=== PATIENT | male | born 1960 | race Caucasian/White ===

== ENCOUNTER 2019-10-04 09:15 | Emergency (ER) | payer BC ==
--- NOTE | 2019-10-04 09:39 | ED ---
HPI Chest Pain - HPI Summary HPI Summary: This patient is a 59 year old male presenting to [facility] with a chief complaint of intermittent chest pain for weeks. He states this morning he felt his chest and back were "splitting". He states he has a Hx of hypertension. Patient does not smoke. Exertion does not aggravate symptoms. He states touching and deep breaths make it feel tight but does not reproduce the splitting sensation. Patient denies SOB, nausea, and vomiting. Denies Hx of DVT. He states he has had costrochondritis before but that the pain was more diffuse. - History of Current Complaint Chief Complaint: EDChestPainROMI Time Seen by Provider: 10/04/19 09:33 Hx Obtained From: Patient Onset/Duration: Started Hours Ago Pain Intensity: 6 Pain Scale Used: 0-10 Numeric Chest Pain Location: Mid Sternal Chest Pain Radiates To:: Back - Allergy/Home Medications Allergies/Adverse Reactions: Allergies Allergy/AdvReac Type Severity Reaction Status Date / Time hydrocortisone Allergy Hives Verified 10/04/19 09:25 naproxen Allergy Hives Verified 10/04/19 09:25 sumatriptan [From Imitrex] Allergy See Comment Verified 10/04/19 09:25 ESCARGOT Allergy Anaphylatic Uncoded 08/18/19 11:09 Shock Home Medications: Home Medications Amlodipine Besylate [Norvasc-] 5 mg PO BID 06/05/16 [History Confirmed 10/04/19] Atenolol TAB* [Tenormin TAB* 50 MG] 50 mg PO BID 06/05/16 [History Confirmed 11/19] diphenhydrAMINE HCl [Benadryl Allergy] 25 mg PO DAILY 07/03/16 [History Confirmed 10/04/19] Aspirin [Aspirin Adult Low Dose] 81 mg PO DAILY 09/04/16 [History Confirmed 11/19] Gabapentin [Neurontin] 300 mg PO TID PRN 05/19/18 [History Confirmed 10/04/19] Butalbital/Aspirin/Caffeine [Butalbital/ASA/Caffeine 50-325-40 mg] 1 cap PO DAILY PRN 01/05/19 [History Confirmed 10/04/19] traZODone TAB* [Desyrel TAB*] 150 mg PO BEDTIME 02/17/19 [History Confirmed 11/19] Glucosam/Chondr/Collagn/Hyalur [Th Glucosamine/Chondroiti] 1 cap PO BID [History Confirmed 10/04/19] Montelukast Sodium TAB* [Singulair TAB*] 10 mg PO DAILY 10/04/19 [History Confirmed 10/04/19] Niacin ER CAP* [Niaspan ER CAP*] 500 mg PO DAILY 10/04/19 [History Confirmed 11/19] PMH/Surg Hx/FS Hx/Imm Hx Endocrine/Hematology History: Denies: Hx Diabetes Cardiovascular History: Reports: Hx Hypertension - ON MEDS Denies: Hx Pacemaker/ICD History: Denies: Hx Renal Disease Musculoskeletal History: Reports: Hx Back Problems - low back, neck, Other Musculoskeletal History - DJD ongoing Sensory History: Reports: Hx Contacts or Glasses Denies: Hx Hearing Aid Opthamlomology History: Reports: Hx Contacts or Glasses Neurological History: Reports: Hx Headaches, Hx Migraine - but pt doesn't like to describe [place] as such... Comment Only: Other Neuro Impairments/Disorders - PAIN CLINIC PT. Psychiatric History: Denies: Hx Panic Disorder - Surgical History Surgery Procedure, Year, and Place: [facility]- REPAIR -2003 Infectious Disease History: No Infectious Disease History: Denies: Traveled Outside the [place] in Last 30 Days - Family History Known Family History: Negative: Seizure Disorder - Social History Alcohol Use: Weekly Alcohol Amount: 1-2 Substance Use Type: Reports: None Smoking Status (MU): Former Smoker Review of Systems Positive: Chest Pain Negative: Shortness Of Breath Negative: Vomiting, Nausea All Other Systems Reviewed And Are Negative: Yes Physical Exam - Summary Physical Exam Summary: Constitutional: Well-developed, Well-nourished, Alert. (-) Distressed Skin: Warm, Dry HENT: Normocephalic; Atraumatic Eyes: Conjunctiva normal Neck: Musculoskeletal ROM normal neck. (-) JVD, (-) Stridor, (-) Tracheal deviation Cardio: Rhythm regular, rate normal, Heart sounds normal; Intact distal pulses; The pedal pulses are 2+ and symmetric. Radial pulses are 2+ and symmetric. (-) Murmur Pulmonary/Chest wall: Effort normal. (-) Respiratory distress, (-) Wheezes, (-) Rales Abd: Soft. (-) Tenderness, (-) Distension, (-) Guarding, (-) Rebound Musculoskeletal: (-) Edema. Chest wall tenderness left sternal border. Lymph: (-) Cervical adenopathy Neuro: Alert, Oriented x3, Strength normal, Cranial nerves II-XII are grossly intact. (-) Dysmetria, (-) Nystagmus, (-) Ataxia by finger to nose testing, (-) Sensory deficit. Psych: Mood and affect Normal Triage Information Reviewed: Yes Vital Signs On Initial Exam: Initial Vitals Temp Pulse Resp BP Pulse Ox 98 F 59 16 162/76 100 10/04/19 09:23 10/04/19 09:23 10/04/19 09:23 10/04/19 09:23 10/04/19 09:23 Vital Signs Reviewed: Yes Procedures - Sedation Patient Received Moderate/Deep Sedation with Procedure: No Diagnostics - Vital Signs Vital Signs Temp Pulse Resp BP Pulse Ox 10/04/19 09:23 98 F 59 16 162/76 100 - Laboratory Result Diagrams: 10/04/19 09:42 10/04/19 09:42 Lab Statement: Any lab studies that have been ordered have been reviewed, and results considered in the medical decision making process. - Radiology CXR Radiology Interpretation Completed By: Radiologist Summary of Radiographic Findings: Elevated lung volumes suggest potential obstructive lung disease. NO acute pulmonary or cardiac process is evident. ED Provider has reviewed this report. - EKG 0916 Cardiac Rate: NL - 63 BPM EKG Rhythm: Sinus Rhythm Summary of EKG Findings: No ischemic changed. ED Physician has reviewed and interpreted this EKG. Chest Pain Course/Dx - Course Course Of Treatment: This patient is a 59 year old male presenting to [facility] with a chief complaint of intermittent chest pain for weeks. He states this morning he felt his chest and back were "splitting". He states he has a Hx of hypertension. Patient does not smoke. Exertion does not aggravate symptoms. He states touching and deep breaths make it feel tight but does not reproduce the splitting sensation. Physical exam reveals left chest wall tenderness. EKG was unremarkable. CXR reveals Elevated lung volumes suggest potential obstructive lung disease. NO acute pulmonary or cardiac process is evident.Plan for discharge was discussed with the patient and he understands and agrees with this plan. - Diagnoses Provider Diagnoses: Chest pain Discharge ED - Sign-Out/Discharge Documenting (check all that apply): Patient Departure - Discharge - Discharge Plan Condition: Stable Disposition: HOME Patient Education Materials: Chest Pain (ED) Referrals: Macario Pollard MD [Primary Care Provider] - 2 Days Additional Instructions: Return to ED with new or worsening symptoms. - Billing Disposition and Condition Condition: STABLE Disposition: Home - Attestation Statements Document Initiated by Scribe: Yes Documenting Scribe: Lefty Hoskins Provider For Whom Scribe is Documenting (Include Credential): Aayush John DO Scribe Attestation: Lefty Nye scribed for Aayush John DO on 10/04/19 at 1445. Scribe Documentation Reviewed: Yes Provider Attestation: The documentation as recorded by the Lefty clement accurately reflects the service I personally performed and the decisions made by Aayush wall DO Status of Scribe Document: Viewed
[2019-10-04 09:50] LABS: ABS Lymphocytes 1.4 10^3/ul (1.0-4.8); ABS Monocytes 0.5 10^3/ul (0-0.8); ABS Neutrophils 3.5 10^3/ul (1.5-7.7); Eosinophil % 0.8 %; Hematocrit 44 % (42-52); Hemoglobin 14.3 g/dL (14.0-18.0); Lymphocyte % 25.1 %; Mean Corpuscular HGB Conc 33 g/dL (31-36); Mean Corpuscular Hemoglobin 28 pg (27-31); Mean Corpuscular Volume 85 fL (80-94); Mean Platelet Volume 7.7 fL (7.4-10.4); Nucleated Red Blood Cells % 0.1; Platelet Count 256 10^3/uL (150-450); Red Blood Count 5.13 10^6 /uL (4.18-5.48); Red Cell Distribution Width 14 % (10-15); White Blood Count 5.5 10^3/uL (3.5-10.8)
[2019-10-04 09:57] LABS: INR 0.91 (0.82-1.09)
[2019-10-04 10:13] LABS: Albumin 4.4 g/dL (3.2-5.2); Albumin/Globulin Ratio 1.8 (1-3); BUN/Creatinine Ratio 28.6 (8-20); Calcium 9.6 mg/dL (8.6-10.3); EGFR African American 94.7 (>60); EGFR Non-African American 78.3 (>60); Globulin 2.5 g/dL (2-4); Total Bilirubin 0.4 mg/dL (0.2-1.0); Total Protein 6.9 g/dL (6.4-8.9)
[2019-10-04 10:14] LABS: Troponin I 0.01 ng/mL (<0.03)
[2019-10-04 13:02] VITALS: BP 128/86
== END 2019-10-04 13:02 | disposition home or self-care (01) ==
LOC: ED 09:15
DX: R07.89 Other chest pain (principal); I10 Essential (primary) hypertension; Z88.6 Allergy status to analgesic agent; Z88.8 Allergy status to other drugs, medicaments and biological substances; Z87.891 Personal history of nicotine dependence
CPT/HCPCS: 36415; 71045; 80053; 84484; 85025; 85610; 93005; 99282